=== PATIENT | male | born 2000 | race Hispanic/Latino ===

== ENCOUNTER → 2025-07-11 | Outpatient (CLI) | payer OTHER ==
--- NOTE | 2025-07-11 17:58 | HMCSR ---
APPROVED REPORT EXAM: Two-dimensional and M-mode echocardiogram with Doppler and color Doppler. INDICATION ICD: I45.10 Unspecified Right bundle branch block Contrast Details Indication: Rule out PFO Agent/Amount Used: [employer] 2D Dimensions RVDd3.2 cmLVEF(%)56.6 (>50%)LA ESV INDEX (BP)17.20 mL/m2 IVSd1.0 (0.7-1.1cm)FS(%)29 % LVDd4.3 (3.8-5.6cm)LA (2D)3.4 (1.6-4.0cm) PWd0.9 (0.7-1.1cm)Ao Root(2D)2.9 (2.0-3.7cm) IVSs1.0 cmLVOT diam2.4 (1.8-2.4cm) LVDs3.1 (2.5-4.0cm)IVC diam1.1 cm PWs1.4 cm M-Mode Dimensions EPSS0.8 cm LA (MM)3.6 (1.6-4.0cm) Ao Root(MM)2.8 (2.0-3.7cm) Aortic Valve AoV Vmax1.1 m/Beth Peak GR4.5 mmHgLVOT Vmax1.0 m/s AoV VTI0.2 mAo Mean GR2.7 mmHgLVOT VTI0.21 m QASIM (VMAX)4.52 cm2AVA (VTI) 4.9 cm2 Mitral Valve MV E Vmax58.3 cm/sDECEL [id number] ms MV A Vmax58.7 cm/sP 1/2 T59 ms E/A ratio1.0MVA (PHT)3.7 cm2 TDI E/E' Medial6.8E/E' Lateral4.0 Medial E' Peak V8.60 cm/sLateral E' Peak V14.70 cm/s Pulmonary Valve PV Vmax0.9 m/sPV VTI0.18 mPV Mean GR2.1 mmHg PV Peak GR3.6 mmHg Left Ventricle The left ventricle is normal size. There is normal left ventricular wall thickness. LVEF is 55-60%. T he left ventricular diastolic function is normal. Right Ventricle The right ventricle is normal size. The right ventricular systolic function is normal. Atria The left atrium size is normal. Negative postive bubble study. Evidence of PFO by agitated saline sug gesting left to right shunt. The right atrium size is normal. Aortic Valve The aortic valve is trileaflet normal in structure. No aortic regurgitation is present. There is no a ortic valvular stenosis. Mitral Valve The mitral valve is normal in structure. There is no evidence of significant mitral regurgitation. Th ere is no mitral valve stenosis. Tricuspid Valve The tricuspid valve is normal in structure. There is no tricuspid valve regurgitation noted. Pulmonic Valve The pulmonary valve is normal in structure. There is trace of pulmonic valvular regurgitation. Great Vessels The aortic root is normal in size. The IVC is normal in size and collapses >50% with inspiration. Pericardium There is no pericardial effusion. Other Information Quality : Adequate Conclusion LVEF is 55-60%. Negative postive bubble study. Evidence of PFO by agitated saline suggesting left to right shunt.
== END | disposition home or self-care (01) ==
LOC: RAH 12:24
PROVIDERS: ATTEND Internal Medicine Cardiovascular Disease
DX: I45.10 Unspecified right bundle-branch block (principal); D45 Polycythemia vera
CPT/HCPCS: 93306